=== PATIENT | female | born 2000 | race Caucasian/White ===

== ENCOUNTER 2023-10-11 16:23 | Emergency (ER) | payer MEDICAID, SELFPAY ==
[2023-10-11 16:26] VITALS: BP 145/70; PULSE 64; RESP 15; TEMP 36.9; O2SAT 98; BMI 31.3
--- NOTE | 2023-10-11 16:34 | ED_ITS ---
<Statement entered by Damian Hodge MD - 10/11/23 18:00> I was consulted by the JEFFERSON, and we discussed the complexity of the problems being addressed. I approved the treatment and management plan for this patient's care in the emergency department, thus performing a substantive portion of the medical decision making. Damian Hodge MD Discharge Plan Disposition Patient Disposition: Home, Self-Care Prescriptions Prescriptions: New prednisone 50 mg tablet 50 mg PO DAILY 5 Days Qty: 5 0RF Referrals Follow up/Referrals: Izaiah Green DO [Staff Physician] - See instructions (Left shoulder arthra lgia) Activity Restrictions/Add. Instructions Additional Instructions/Restrictions: I have referred you to orthopedics for further evaluation/treatment. Please c all in the morning to make an appointment. Follow-up with your PCP or return to ER for any worsening signs or symptoms as needed. Clinical Impressions Clinical Impression: Arthralgia of left shoulder region Stand Alone Forms Stand Alone Forms: Work/School Release Instructions Patient Instructions: DI for Arthralgia Discharge ED Provider: Damian Hodge General Adult HPI General Chief complaint: PAIN Stated complaint: Left shoulder,arm pain Time Seen by Provider: 10/11/23 16:27 History of Present Illness HPI narrative: Patient presents for evaluation of left upper extremity pain. Patient presents for left upper extremity pain that began when she awoke this morning. 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 Patient denies any known trauma or injury but awoke this morning with left shoulder pain that seems to radiate both proximally and distally down her arm with range of motion movement of her shoulder joint. She denies numbness tingling loss of muscle strength or muscle flaccidity. Related Data Previous Rx's Medication Instructions Recorded prednisone 50 mg tablet 50 mg PO DAILY 5 days #5 tabs 10/11/23 Allergies Allergy/AdvReac Type Severity Reaction Status Date / Time No Known Allergies Allergy Verified 10/11/23 16:53 [facility] Disclaimer: The information contained in this section may have been updated after the patient was seen, as this information can be updated by other users. Social History Smoking Status: Never smoker alcohol intake: never current occupational status: employed Travel in the last 8 weeks: None ROS Obtained: Yes Systems reviewed as appropriate & no additional complaints except as documented Physical Exam General General appearance: alert and in no apparent distress Respiratory Respiratory exam: Present normal lung sounds bilaterally Cardiovascular Cardiovascular exam: Present regular rate and normal rhythm Neurological Exam Neurological exam: Present alert and oriented X3 Skin Skin exam: Present warm, dry and normal color Other Other exam information: Focused left upper extremity exam shows that patient is tender to palpation underneath the AC joint especially with abduction, and she is tender throughout her entire range of motion testing of her shoulder. Patient has no pain with pronation supination of the forearm and is neurovascular intact distally. I do not feel any joint laxity do not feel tenderness over the biceps groove I do not feel any deformities or joint swelling. Medical Decision Making Medical Records Medical records reviewed: Yes I reviewed the patient's medical records. Alejandro Inquiry Pt receiving controlled substance: No Vital Signs: 10/11/23 16:26 10/11/23 16:37 10/11/23 17:45 Temperature 98.4 F 98.0 F Temperature Source Oral Pulse Rate 74 71 Pulse Rate [Left Radial] 64 Respiratory Rate 15 13 19 Blood Pressure 125/70 132/75 Blood Pressure [Right Arm] 145/70 H Blood Pressure Mean [Right Arm] 95 02 Sat by Pulse Oximetry 98 99 Oxygen Delivery Method Room Air Room Air Lab Data Lab results reviewed: Yes I reviewed the patient's lab results. Orders (Tests/Meds): ED MEDICATIONS Discontinued Medications Generic Name Dose Route Start Last Admin Trade Name Freq PRN Reason Stop Dose Admin Acetaminophen 1,000 mg 10/11/23 16:45 10/11/23 17:03 Acetaminophen 500mg Tab PO 10/11/23 16:46 1,000 mg ONCE ONE Administration Ketorolac Tromethamine 10 mg 10/11/23 16:45 10/11/23 17:03 Ketorolac 10mg Tablet PO 10/16/23 16:44 10 mg Q6H DAVID Administration Prednisone 40 mg 10/11/23 16:46 10/11/23 17:03 Prednisone 20mg Tab PO 10/11/23 16:47 40 mg ONCE ONE Administration ORDERS Category Date Time Status Shoulder XR left minimum 2 views [XR shoulder LT min 2V Exams 10/11/23 16:45 Completed ] Stat Medical Decision Narrative: In summary patient is a-year-old female who presents to the emergency department for evaluation of left shoulder pain. Patient is hemodynamically upon arrival, afebrile. Physical exam is remarkable for tenderness palpation under the AC joint with limited range of motion due to pain. Patient has no neurovascular compromise distally. Differential diagnosis includes impingement syndrome versus bursitis versus joint effusion versus ligamentous injury etc. Initial workup will be conducted with plain film x-rays. Initial interventions include acetaminophen Decadron Toradol. Initial workup reviewed by me my informal review of her plain film x-ray shows no acute processes prior to radiologist read.. Upon repeat evaluation patient has modest improvement. Given this patient will be given a prescription for prednisone and referral to orthopedics for further evaluation and workup is appropriate for discharge home Critical Care Critical Care Time Critical Care Time: No
[2023-10-11 16:37] VITALS: BP 125/70; PULSE 74; RESP 13; O2SAT 99
--- NOTE | 2023-10-11 16:45 | XR_ITS ---
PROCEDURE INFORMATION: Exam: XR Left Shoulder Exam date and time: 10/11/2023 4:51 PM Age: 23 years old Clinical indication: Pain; Shoulder; Left; Additional info: Arthralgia TECHNIQUE: Imaging protocol: Radiologic exam of the left shoulder. Views: 2 or more views. COMPARISON: No relevant prior studies available. FINDINGS: Bones/joints: Normal. No acute fracture identified. Soft tissues: Normal. IMPRESSION: No acute findings.
[2023-10-11] MEDS: ACETAMINOPHEN 500MG TAB 1000 MG PO (17:03)
[2023-10-11] MEDS: predniSONE 20MG TAB 40 MG PO (17:03)
[2023-10-11] MEDS: KETOROLAC 10MG TABLET 10 MG PO (17:03)
[2023-10-11 17:45] VITALS: BP 132/75; PULSE 71; RESP 19; TEMP 36.7
== END 2023-10-11 17:46 | disposition home or self-care (01) ==
PROVIDERS: Emergency Provider Emergency Medicine
DX: M25.512 Pain in left shoulder (principal)
CPT/HCPCS: 73030; 99283

== ENCOUNTER 2024-01-02 13:11 | Emergency (ER) | payer MEDICAID, SELFPAY ==
[2024-01-02 13:55] VITALS: BP 146/77; PULSE 74; RESP 18; TEMP 37.1; O2SAT 98; BMI 32.5
--- NOTE | 2024-01-02 14:09 | EXP.UTC ---
Discharge Plan Disposition Patient Disposition: Home, Self-Care Condition: Good Prescriptions Prescriptions: New azithromycin [Zithromax Z-Aamir] 250 mg tablet See Rx Instructions .ROUTE .COMPLEX 5 Days Qty: 6 0RF Rx Instructions: For 250 mg dose pack: take 500 mg today (day 1), then 250 mg for 4 days (days 2-5) benzonatate 100 mg capsule 100 mg PO TID PRN (Reason: cough) Qty: 30 0RF methylprednisolone [Medrol (Aamir)] 4 mg tablets,dose pack See Rx Instructions .Route .COMPLEX 6 Days Qty: 21 0RF Rx Instructions: taper pack; guaifenesin [Mucinex] 600 mg tablet extended release 12hr 1,200 mg PO BID PRN (Reason: cough) Qty: 20 0RF Referrals Follow up/Referrals: Provider,Referral, MD [Primary Care Provider] - See instructions Activity Restrictions/Add. Instructions Additional Instructions/Restrictions: Start antibiotic today. Be sure to complete entire prescription even if feeling better Monitor temp. Tylenol every 4 hours as needed and / or ibuprofen every 6 hours as needed ( As long as your primary care physician has told you that it ok to take both. For fever/aches/pains ER if no less than 101 despite Tylenol or Motrin Humidifier/vaporizer or hot steamy shower Mucinex for your cough and cough suppressant only at night. Be sure to drink lots of water. *Tessalon Perles will not cause drowsiness but use at bedtime to help stop cough so that you may get some rest. *Start steroid today. Helps with inflammation therefore, cough and wheezing. Follow directions on the package. Reviewed side effects. Patient reports taking them before. Follow up IMMEDIATELY for new or worsening of symptoms OR no noticeable improvement over the next 48-72 hours. 911 immediately for any life threatening symptoms such as chest pain or difficulty breathing Clinical Impressions Clinical Impression: Sinusitis, Bronchitis Stand Alone Forms Stand Alone Forms: Work/School Release Instructions Patient Instructions: Sinusitis, Acute Bronchitis, DI for Sinusitis Print Language Print Language: Cape Verdean Discharge ED Provider: Kenna Garcia [facility] [place] General Stated complaint: chest congestion headache tired Mode of Arrival: Ambulatory Source of Information: Patient Limitations: No Limitations Time Seen by Provider: 01/02/24 14:09 Description of Symptoms (Recalled from Triage Doc. by RN): PATIENT C/O CONGESTION, HEADACHE, COUGH AND WEAKNESS FOR APPROX 2 MONTHS HEENT Symptoms (Recalled from RN notes): Yes Resp Symptoms (Recalled from RN notes): Yes Skin Symptoms (Recalled from RN notes): No MS Symptoms (Recalled from RN notes): No Functional Status (Recalled from RN notes): WNL History of Present Illness Provider Complaint: Patient state that she has been having sinus congestion and pressure, chest congestion and cough States that she has tried several over the counter medications to help but has not helped much so today she came in to get checked Related Data Previous Rx's ?Medication ?Instructions ?Recorded azithromycin 250 mg tablet See Rx Instructions PO .COMPLEX 5 01/02/24 (Zithromax Z-Aamir) days #6 tabs benzonatate 100 mg capsule 100 mg PO TID PRN cough #30 caps 01/02/24 guaifenesin 600 mg tablet, 1,200 mg (2 x 600 mg) PO BID PRN 01/02/24 extended release 12 hr (Mucinex) cough #20 tabs methylprednisolone 4 mg tablets in See Rx Instructions .Route 01/02/24 a dose pack (Medrol (Aamir)) .COMPLEX 6 days #21 tabs Allergies Allergy/AdvReac Type Severity Reaction Status Date / Time No Known Allergies Allergy Verified 10/11/23 16:53 Worker's Comp Is this a Worker's Comp case?: No [facility] Disclaimer: The information contained in this section may have been updated after the patient was seen, as this information can be updated by other users. Medical History (Updated 01/02/24 @ 14:13 by Kenna Garcia APRN) No significant past medical history Soc
[2024-01-02 14:15] VITALS: BP 146/77; PULSE 74; RESP 18; TEMP 37.1; O2SAT 98
== END 2024-01-02 14:18 | disposition home or self-care (01) ==
PROVIDERS: Emergency Provider Nurse Practitioner
DX: J20.9 Acute bronchitis, unspecified (principal); J01.90 Acute sinusitis, unspecified; R51.9 Headache, unspecified; R05.9 Cough, unspecified
CPT/HCPCS: 99204; 99212; G0463

== ENCOUNTER 2024-01-22 12:39 | Emergency (ER) | payer MEDICAID, SELFPAY ==
[2024-01-22 12:50] VITALS: BP 133/67; PULSE 73; RESP 21; TEMP 37.1; O2SAT 98; BMI 33.5
--- NOTE | 2024-01-22 13:37 | ED_ITS ---
Discharge Plan Disposition Patient Disposition: Home, Self-Care Condition: Good Prescriptions Prescriptions: New cyclobenzaprine 10 mg Tablet 10 mg PO BID PRN (Reason: Muscle Spasm) Qty: 20 0RF methylprednisolone 4 mg Tablets,Dose Pack 4 mg PO DIRECTED 6 Days Qty: 21 0RF Rx Instructions: Take 1 pack as directed for 6 days Referrals Follow up/Referrals: Provider,Referral, MD [Primary Care Provider] - See instructions Activity Restrictions/Add. Instructions Additional Instructions/Restrictions: Go home and rest. It would be best if you rested tomorrow too. No heavy lifting. No twisting. Take the oral medications as directed. The muscle relaxer (cyclobenzaprine--Flexeril) will make you drowsy, so don't drive or operate heavy machinery after taking it. Don't start the oral steroids (medrol dose pack) until tomorrow, since you had the shots in here today. Follow up with your regular doctor. GO TO THE ER FOR ANY WORSENING SYMPTOMS OR CONCERN, ESPECIALLY BOWEL OR BLADDER ISSUES, SADDLE AREA NUMBNESS, FEVER, ETC Clinical Impressions Clinical Impression: Low back pain Stand Alone Forms Stand Alone Forms: Work/School Release Instructions Patient Instructions: DI for Low Back Pain, Cyclobenzaprine, Dexamethasone Injection Print Language Print Language: Khmer Discharge ED Provider: Jesus Benoit [facility] General Stated complaint: pain in lower back Mode of Arrival: Ambulatory Source of Information: Patient Limitations: No Limitations Time Seen by Provider: 01/22/24 13:11 Description of Symptoms (Recalled from Triage Doc. by RN): PATIENT C/O PAIN TO MID-LOWER BACK FOR APPROX 1 WEEK BUT IS WORSE TODAY. 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 HEENT Symptoms (Recalled from RN notes): No Resp Symptoms (Recalled from RN notes): No Skin Symptoms (Recalled from RN notes): No MS Symptoms (Recalled from RN notes): Yes Functional Status (Recalled from RN notes): WNL Related Data Previous Rx's ?Medication ?Instructions ?Recorded cyclobenzaprine 10 mg tablet 10 mg PO BID PRN Muscle Spasm #20 01/22/24 tabs methylprednisolone 4 mg tablets in 4 mg PO DIRECTED 6 days #21 tabs 01/22/24 a dose pack Allergies Allergy/AdvReac Type Severity Reaction Status Date / Time No Known Allergies Allergy Verified 10/11/23 16:53 Worker's Comp Is this a Worker's Comp case?: No [facility] Disclaimer: The information contained in this section may have been updated after the patient was seen, as this information can be updated by other users. Medical History (Updated 01/22/24 @ 14:19 by Jesus Benoit APRN) No significant past medical history Social History (Updated 10/11/23 @ 18:00 by ANA Rae) Smoking Status: Never smoker alcohol intake: never current occupational status: employed Travel in the last 8 weeks: None ROS Obtained: Yes All systems reviewed & no additional complaints except as documented Constitutional Constitutional: Denies chills and Denies fever(s) Eyes Eyes: Denies eye discharge ENT Ears, Nose, Mouth, and Throat: Denies dizziness, Denies otalgia and Denies sore throat Cardiovascular Cardiovascular: Denies chest pain Respiratory Respiratory: Denies shortness of breath, Denies chest congestion, Denies cough, Denies stridor and Denies wheezing Gastrointestinal Gastrointestingal: Denies nausea or vomiting Musculoskeletal Musculoskeletal: Reports as per HPI Integumentary/Breasts Skin/Breast: Denies rash Neurologic Neurologic: Denies dizziness, Denies paresthesias and Reports radicular pain Allergic/Immunologic Allergic/Immunologic: Denies wheezing Physical Exam General General appearance: alert and in no apparent distress Head Head exam: atraumatic, normocephalic and normal inspection Eye Eye exam: Present normal appearance, PERRL and EOMI ENT ENT exam: Present normal exam, normal oropharynx, mucous membranes moist, TM's normal bilaterally and normal external ear exam Neck Neck exam: Present normal inspection, full ROM and trachea midline; Absent meningismus or lymphadenopathy Chest Chest inspection: Present normal inspection and symmetric chest wall rise; Absent tenderness Respiratory Respiratory exam: Present normal lung sounds bilaterally; Absent respiratory distress Cardiovascular Cardiovascular exam: Present regular rate and normal rhythm; Absent JVD Abdominal Exam Abdominal exam: Present soft and normal bowel sounds; Absent distention, tenderness or guarding Extremities Exam Extremities exam: Present normal inspection, full ROM and normal capillary refill; Absent calf tenderness Back Exam Back exam: Present normal inspection and full ROM; Absent tenderness, CVA tenderness (R) or CVA tenderness (L) Neurological Exam Neurological exam: Present alert, oriented X3, CN II-XII intact, normal gait and reflexes normal; Absent motor sensory deficit Psychiatric Psychiatric exam: Present normal affect and normal mood Skin Skin exam: Present warm, dry, intact and normal color Lymphatic Lymphatic Findings: no adenopathy Medical Decision Making Medical Records Medical records reviewed: No I reviewed the patient's medical records. Alejandro Inquiry Pt receiving controlled substance: No Vital Signs: 01/22/24 12:50 Temperature 98.8 F Temperature Source Oral Pulse Rate [Left Brachial] 73 Respiratory Rate 21 Blood Pressure [Left Arm] 133/67 Blood Pressure Mean [Left Arm] 89 Blood Pressure Source [Left Arm] Automatic Cuff Blood Pressure Position [Left Arm] Sitting 02 Sat by Pulse Oximetry 98 Oxygen Delivery Method Room Air
[2024-01-22] MEDS: DEXAMETHASONE 4MG/ML 1ML VIAL 8 MG IM (13:57)
[2024-01-22] MEDS: KETOROLAC 60MG/2ML VIAL 60 MG IM (13:57)
[2024-01-22 14:20] VITALS: BP 133/67; PULSE 73; RESP 21; TEMP 37.1; O2SAT 98
== END 2024-01-22 14:23 | disposition home or self-care (01) ==
PROVIDERS: Emergency Provider Nurse Practitioner Family
DX: M54.59 Other low back pain (principal)
CPT/HCPCS: 96372; 99212; 99214; G0463; J1100; J1885

== ENCOUNTER 2024-03-01 15:27 | Emergency (ER) | payer MEDICAID, SELFPAY ==
--- NOTE | 2024-03-01 16:28 | EXP.UTC ---
Discharge Plan Disposition Patient Disposition: Home, Self-Care Condition: Good Prescriptions Prescriptions: New ibuprofen [IBU] 800 mg tablet 800 mg PO Q8HP PRN (Reason: Moderate Pain) Qty: 30 0RF No Action cyclobenzaprine 10 mg Tablet 10 mg PO BID PRN (Reason: Muscle Spasm) Qty: 20 0RF methylprednisolone 4 mg Tablets,Dose Pack 4 mg PO DIRECTED 6 Days Qty: 21 0RF Rx Instructions: Take 1 pack as directed for 6 days Referrals Follow up/Referrals: Provider,Referral, MD [Primary Care Provider] - See instructions Activity Restrictions/Add. Instructions Additional Instructions/Restrictions: Drink plenty of fluids. Take tylenol or ibuprofen for pain. Follow up with your management coordinator. Follow up with your regular doctor. GO TO THE ER FOR ANY WORSENING SYMPTOMS Clinical Impressions Clinical Impression: Dysmenorrhea Stand Alone Forms Stand Alone Forms: Work/School Release Instructions Patient Instructions: Painful Menstrual Periods, DI for Dysmenorrhea Print Language Print Language: Malawian Discharge ED Provider: Jesus Benoit [facility] General Stated complaint: excessive vaginal bleeding with clots Time Seen by Provider: 03/01/24 16:28 History of Present Illness Provider Complaint: She states that for the past 3 days she has had heavy vaginal bleeding with clots. She states that she is having a very heavy period. She states that she has had heavy periods since she got the depo shot 2 months ago. Related Data Previous Rx's ?Medication ?Instructions ?Recorded cyclobenzaprine 10 mg tablet 10 mg PO BID PRN Muscle Spasm #20 01/22/24 tabs methylprednisolone 4 mg tablets in 4 mg PO DIRECTED 6 days #21 tabs 01/22/24 a dose pack ibuprofen 800 mg tablet (IBU) 800 mg PO Q8HP PRN Moderate Pain 03/01/24 #30 tabs Allergies Allergy/AdvReac Type Severity Reaction Status Date / Time No Known Allergies Allergy Verified 10/11/23 16:53 [facility] Disclaimer: The information contained in this section may have been updated after the patient was seen, as this information can be updated by other users. Medical History (Updated 03/01/24 @ 17:34 by Jesus Benoit APRN) No significant past medical history Social History (Updated 10/11/23 @ 18:00 by ANA Rae) Smoking Status: Never smoker alcohol intake: never current occupational status: employed Travel in the last 8 weeks: None ROS Obtained: Yes All systems reviewed & no additional complaints except as documented Constitutional Constitutional: Denies chills and Denies fever(s) Eyes Eyes: Denies eye discharge ENT Ears, Nose, Mouth, and Throat: Denies dizziness, Denies otalgia and Denies sore throat Cardiovascular Cardiovascular: Denies chest pain Respiratory Respiratory: Denies shortness of breath, Denies chest congestion, Denies cough, Denies stridor and Denies wheezing Gastrointestinal Gastrointestingal: Denies nausea or vomiting Musculoskeletal Musculoskeletal: Reports system reviewed and no additional complaints, except as documented and Denies arthralgias Integumentary/Breasts Skin/Breast: Denies rash Neurologic Neurologic: Denies dizziness and Denies paresthesias Allergic/Immunologic Allergic/Immunologic: Denies wheezing Physical Exam General General appearance: alert and in no apparent distress Head Head exam: atraumatic, normocephalic and normal inspection Eye Eye exam: Present normal appearance, PERRL and EOMI ENT ENT exam: Present normal exam, normal oropharynx, mucous membranes moist, TM's normal bilaterally and normal external ear exam Neck Neck exam: Present normal inspection, full ROM and trachea midline; Absent meningismus or lymphadenopathy Chest Chest inspection: Present normal inspection and symmetric chest wall rise; Absent tenderness Respiratory Respiratory exam: Present normal lung sounds bilaterally; Absent respiratory distress Cardiovascular Cardiovascular exam: Present regular rate and normal rhythm; Absent JVD Abdominal Exam Abdominal exam: Present soft and normal bowel sounds; Absent distention, tenderness or guarding Extremities Exam Extremities exam: Present normal inspection, full ROM and normal capillary refill; Absent calf tenderness Back Exam Back exam: Present normal inspection; Absent tenderness Neurological Exam Neurological exam: Present alert and oriented X3 Psychiatric Psychiatric exam: Present normal affect and normal mood Skin Skin exam: Present warm, dry, intact and normal color Lymphatic Lymphatic Findings: no adenopathy Medical Decision Making Medical Records Medical records reviewed: No I reviewed the patient's medical records. Screening: Per USPSTF and CDC recommendations, given the prevalence of disease in our region, it is our hospital?s policy to screen for HIV and viral Hepatitis for all patients aged 18 and over and those with ongoing risk factors. Alejandro Inquiry Pt receiving controlled substance: No Lab Data Lab results reviewed: Yes I reviewed the patient's lab results. 03/01/24 16:52
[2024-03-01 16:31] VITALS: BP 145/83; PULSE 78; RESP 20; TEMP 36.6; O2SAT 98; BMI 32.5
[2024-03-01 16:35] LABS: UTC Pregnancy Test, Urine Negative (Negative)
[2024-03-01 17:41] LABS: Basophils % 0.6 % (0.1-2.0); Eosinophils # 0.1 K/mm3 (0.0-0.4); Eosinophils % 1.7 % (0.1-12.0); Hematocrit 36.5 % (37.0-47.0); Hemoglobin 12.5 g/dL (12.2-16.2); Lymphocytes # 2.2 K/mm3 (0.7-4.5); Lymphocytes % 31.2 % (10-50); Mean Corpuscular HGB Conc 34.3 g/dL (31.8-35.4); Mean Corpuscular Hemoglobin 28.4 pg (27.0-31.2); Mean Corpuscular Volume 82.8 fl (81-99); Mean Platelet Volume 10.6 fl (7.4-10.4); Monocytes # 0.4 K/mm3 (0.1-1.0); Monocytes % 5.6 % (1.7-9.3); Neutrophils # 4.4 K/mm3 (1.8-7.8); Platelet Count 244 K/mm3 (142-424); Red Blood Count 4.41 M/mm3 (4.20-5.40); Red Cell Distribution Width 14.3 % (11.5-17.5); White Blood Count 7.1 K/mm3 (4.8-10.8)
[2024-03-01 17:49] VITALS: BP 145/83; PULSE 78; RESP 18; TEMP 36.6
== END 2024-03-01 17:59 | disposition home or self-care (01) ==
PROVIDERS: Emergency Provider Nurse Practitioner Family
DX: N94.6 Dysmenorrhea, unspecified (principal)
CPT/HCPCS: 81025; 85025; 99213; G0381

== ENCOUNTER 2024-06-11 17:00 | Emergency (ER) | payer MEDICAID, SELFPAY ==
[2024-06-11 17:01] VITALS: BP 152/85; PULSE 87; RESP 17; TEMP 36.7; O2SAT 99; BMI 17.7
--- NOTE | 2024-06-11 17:05 | ED_ITS ---
<Statement entered by Kishan Portillo MD - 06/11/24 22:18> I was consulted by the JEFFERSON, and we discussed the complexity of the problems being addressed. I approved the treatment and management plan for this patient's care in the emergency department, thus performing a substantive portion of the medical decision making. Kishan Portillo MD, ERIC, FACEP Discharge Plan Disposition Patient Disposition: Home, Self-Care Condition: Good Chief Complaint: Headache Prescriptions Prescriptions: No Action cyclobenzaprine 10 mg Tablet 10 mg PO BID PRN (Reason: Muscle Spasm) Qty: 20 0RF methylprednisolone 4 mg Tablets,Dose Pack 4 mg PO DIRECTED 6 Days Qty: 21 0RF Rx Instructions: Take 1 pack as directed for 6 days ibuprofen [IBU] 800 mg tablet 800 mg PO Q8HP PRN (Reason: Moderate Pain) Qty: 30 0RF Referrals Follow up/Referrals: Odalis Solano APRN [Nurse Practitioner] - See instructions Eligio Snell DO [Staff Physician] - See instructions Provider,MD Flavia [Primary Care Provider] - See instructions Christopher Link MD [Staff Physician] - See instructions Activity Restrictions/Add. Instructions Additional Instructions/Restrictions: I have referred you to cardiology PCP and Dr. Snell and Brenda Solano of [facility] for further workup and management as an outpatient. If you have any continued new or worsening signs or symptoms follow-up with your PCP or return to the ER as needed. Clinical Impressions Clinical Impression: Chest pain Print Language Print Language: Burmese Discharge ED Provider: Kishan Portillo General Adult HPI General Chief complaint: Headache Stated complaint: HBP ,[place], LT arm pain Time Seen by Provider: 06/11/24 17:05 History of Present Illness HPI narrative: Patient presents for evaluation of headache and chest pain. Patient reports yesterday that she began having a headache that then progressed into a rapid heart rate and right-sided chest pain. That persisted for a long period of time however resolved on its own. Patient reports that she had elevated blood pressures during her and was concerned because she felt very similarly yesterday as to when she had preeclampsia. She denies fever chills hemoptysis hematochezia melena nausea vomiting diarrhea. Patient states today that she still has a slight headache but her chest pain is gone. Related Data Previous Rx's ?Medication ?Instructions ?Recorded cyclobenzaprine 10 mg tablet 10 mg PO BID PRN Muscle Spasm #20 01/22/24 tabs methylprednisolone 4 mg tablets in 4 mg PO DIRECTED 6 days #21 tabs 01/22/24 a dose pack ibuprofen 800 mg tablet (IBU) 800 mg PO Q8HP PRN Moderate Pain 03/01/24 #30 tabs Allergies Allergy/AdvReac Type Severity Reaction Status Date / Time No Known Allergies Allergy Verified 10/11/23 16:53 [facility] Disclaimer: The information contained in this section may have been updated after the patient was seen, as this information can be updated by other users. Medical History (Updated 06/11/24 @ 19:18 by ANA Rae) No significant past medical history Social History (Updated 10/11/23 @ 18:00 by ANA Rae) Smoking Status: Never smoker alcohol intake: never current occupational status: employed Travel in the last 8 weeks: None Have you lived/traveled outside US in past 30 days?: No Contact w/someone who lives/traveled outside US past 30 days?: No Exposure to someone with infectious disease in past 14 days?: No Do you have a fever (greater than 100.4 F or 38 C)?: No Have you tested positive for COVID-19: No Exposed to someone with COVID-19 in past 14 days?: No Do you have a sore throat?: No Do you have a cough?: No Do you have any weakness?: No Do you have any diarrhea?: No Are you experiencing any unusual bleeding?: No Do you have any muscle aches/pain?: No Do you have any abdominal pain?: No Are you experiencing loss of taste or smell?: No ROS Obtained: Yes Systems reviewed as appropriate & no additional complaints except as documented Physical Exam General General appearance: alert and in no apparent distress Respiratory Respiratory exam: Present normal lung sounds bilaterally Cardiovascular Cardiovascular exam: Present regular rate Neurological Exam Neurological exam: Present alert and oriented X3 Medical Decision Making Medical Records Medical records reviewed: Yes I reviewed the patient's medical records. Screening: Per USPSTF and CDC recommendations, given the prevalence of disease in our region, it is our hospital?s policy to screen for HIV and viral Hepatitis for all patients aged 18 and over and those with ongoing risk factors. Alejandro Inquiry Pt receiving controlled substance: No Vital Signs: 06/11/24 17:01 06/11/24 17:41 06/11/24 18:44 Temperature 98.1 F Temperature Source Oral Pulse Rate 72 76 Pulse Rate [Right] 87 Respiratory Rate 17 14 Blood Pressure 130/80 143/69 H Blood Pressure [Left Arm] 152/85 H Blood Pressure Mean [Left Arm] 107 Blood Pressure Source [Left Arm] Automatic Cuff Blood Pressure Position Sitting 02 Sat by Pulse Oximetry 99 99 99 Oxygen Delivery Method Room Air Room Air Lab Data Lab results reviewed: Yes I reviewed the patient's lab results. Lab Results 06/11/24 17:38: WBC 9.3, RBC 4.54, Hgb 12.0 L, Hct 37.0, MCV 81.5, MCH 26.4 L, MCHC 32.4, RDW 15.1, Plt Count 238, MPV 12.6 H, Neut % (Auto) 71.6, Lymph % (Auto) 19.9, [place] % (Auto) 6.4, Eos % (Auto) 1.5, Baso % (Auto) 0.4, Neut # (Auto) 6.6, Lymph # (Auto) 1.9, [place] # (Auto) 0.6, Eos # (Auto) 0.1, Baso # (Auto) 0.0, Sodium 138, Potassium 4.2, Chloride 108 H, Carbon Dioxide 22, Anion Gap 12.2, BUN 10, Creatinine 0.70, Estimated Creat Clear 105, Estimated GFR 101, Est GFR ( Amer) 122, Glucose 118 H, Calcium 9.3, Total Bilirubin 0.2, AST 42 H, ALT 39, Alkaline Phosphatase 48, Troponin I < 0.01, Total Protein 6.6, Albumin 4.4, Globulin 2.2, Albumin/Globulin Ratio 2.0 H, Lipase 53, Serum HCG, Qual Negative, SARS-CoV-2 (PCR) Not detected, HIV Ag/Ab Combo Qual Negative, Influenza A Untype (PCR) Not detected, Influenza Type B (PCR) Not detected 06/11/24 17:38 06/11/24 17:38 Orders (Tests/Meds): ED MEDICATIONS Discontinued Medications Generic Name Dose Route Start Last Admin Trade Name Freq PRN Reason Stop Dose Admin Acetaminophen 1,000 mg 06/11/24 17:18 06/11/24 17:39 Acetaminophen 500mg Tab PO 06/11/24 17:19 1,000 mg ONCE ONE Administration Ibuprofen 800 mg 06/11/24 17:18 06/11/24 17:39 Ibuprofen 400 Mg Tablet PO 06/11/24 17:19 800 mg ONCE ONE Administration ORDERS Category Date Time Status Chest XR 2 view (NOT portable) [XR chest 2V] Stat Exams 06/11/24 17:18 Taken CBC w/Auto Diff [Complete Blood Count Auto Diff] Stat Lab 06/11/24 17:38 Completed CMP [Comprehensive Metabolic Panel] Stat Lab 06/11/24 17:38 Completed HCG Qualitative, Serum Stat Lab 06/11/24 17:38 Completed HIV Combo Stat Lab 06/11/24 17:38 Completed Hepatitis C Ab Qual. W/ RFX Stat Lab 06/11/24 17:38 Received Lipase Stat Lab 06/11/24 17:38 Completed Rapid PCR Covid and Flu A/B Stat Lab 06/11/24 17:38 Completed Trop I [Troponin I] Stat Lab 06/11/24 17:38 Completed Troponin I Q3H Lab 06/11/24 20:30 Ordered Troponin I Q3H Lab 06/11/24 23:30 Ordered HEART Score History (anamnesis): Slightly suspicious ECG: Non-specific disturbance Age: <45 years Risk factors: 1-2 risk factors Troponin: </= normal limit HEART Score: 2 Medical Decision Narrative: In summary patient is a 24-year-old female who presents to the emergency department for evaluation of headache, chest pain and fast heart rate yesterday.. Patient is initially normotensive with a blood pressure 1 50-85 heart rate 87 with sinus rhythm on the bedside monitor breathing 17 times a minute satting at 99% on room air upon arrival, and afebrile at 98.1. Physical exam is remarkable for no congeal signs no nuchal rigidity pupils equal round reactive to light Boone Coma Score is 15 she is awake alert and oriented to person place and circumstance, breath sounds clear and equal bilaterally to the bases without adventitious sounds. Heart sounds are S1-S2 regular rate and rhythm without murmurs Rubs or thrills. There is no reproducible chest pain on palpation.. Differential diagnosis includes tachyarrhythmia versus ACS versus viral infection versus pneumonia versus anxiety etc. Initial workup will be conducted with hematologic labs twelve-lead EKG plain film chest x-ray respiratory swab. Initial interventions include Tylenol and ibuprofen. Initial workup reviewed by me and her hematologic labs are nonactionable her troponin is undetectable her twelve-lead EKG is normal and my informal interpretation of her plain film chest x-ray shows no acute processes.. Upon repeat evaluation patient reports feeling no change and remains asymptomatic. Given this patient is appropriate for discharge with referral to cardiology for further outpatient testing and also referral for a PCP and for behavioral health for anxiety management. Critical Care Critical Care Time Critical Care Time: No
--- NOTE | 2024-06-11 17:18 | XR_ITS ---
PROCEDURE INFORMATION: Exam: XR Chest Exam date and time: 06/11/2024 6:50 PM Age: 24 years old Clinical indication: Pain; Chest pressure; Additional info: Right-sided chest pain TECHNIQUE: Imaging protocol: Radiologic exam of the chest. Views: 2 views. COMPARISON: CR XR SHOULDER LT MIN 2V 10/11/2023 4:51 PM FINDINGS: Lungs: Normal pulmonary expansion. Pulmonary vasculature grossly normal. No gross pulmonary infiltrates or edema pattern. Pleural spaces: No pleural effusion. No pneumothorax. Heart/Mediastinum: Heart size normal. No tracheal/mediastinal shift. Bones/joints: No acute osseous abnormalities are identified. IMPRESSION: No acute thoracic process.
--- NOTE | 2024-06-11 17:36 | PC.NURSE ---
I rounded on the pt and straight stuck her for lab work. no new complaints. no needs voiced. call keys in reach.
[2024-06-11] MEDS: ACETAMINOPHEN 500MG TAB 1000 MG PO (17:39)
[2024-06-11] MEDS: IBUPROFEN 400 MG TABLET 800 MG PO (17:39)
[2024-06-11 17:41] VITALS: BP 130/80; PULSE 72; RESP 14; O2SAT 99
[2024-06-11 17:44] LABS: Coronavirus 19, PCR Not Detected (NotDetected); Influenza A, PCR Not Detected (NotDetected); Influenza B, PCR Not Detected (NotDetected)
[2024-06-11 17:50] LABS: Basophils % 0.4 % (0.1-2.0); Eosinophils # 0.1 K/mm3 (0.0-0.4); Eosinophils % 1.5 % (0.1-12.0); Lymphocytes # 1.9 K/mm3 (0.7-4.5); Lymphocytes % 19.9 % (10-50); Mean Corpuscular HGB Conc 32.4 g/dL (31.8-35.4); Mean Corpuscular Hemoglobin 26.4 pg (27.0-31.2); Mean Corpuscular Volume 81.5 fl (81-99); Mean Platelet Volume 12.6 fl (7.4-10.4); Monocytes # 0.6 K/mm3 (0.1-1.0); Monocytes % 6.4 % (1.7-9.3); Neutrophils # 6.6 K/mm3 (1.8-7.8); Neutrophils % 71.6 % (37.0-80.0); Platelet Count 238 K/mm3 (142-424); Red Blood Count 4.54 M/mm3 (4.20-5.40); Red Cell Distribution Width 15.1 % (11.5-17.5); White Blood Count 9.3 K/mm3 (4.8-10.8)
[2024-06-11 18:23] LABS: Alanine Aminotransferase 39 U/L (12-78); Albumin Level 4.4 g/dl (3.5-5.0); Alkaline Phosphatase 48 U/L (38-126); Anion Gap 12.2 mEq/L (5-15); Aspartate Amino Transferase 42 U/L (14-36); Bilirubin,Total 0.2 mg/dl (0.2-1.3); Blood Urea Nitrogen 10 mg/dl (7-17); Calcium 9.3 mg/dl (8.4-10.2); Carbon Dioxide 22 mmol/L (22.0-30.0); Chloride 108 mmol/L (98-107); Creatinine Clearance Estimated 105 mL/min (50-200); Estimated Glomerular Filt Rate 101 ml/min (>60); GFR (African American) 122 ML/MIN (>60); Globulin 2.2 g/dL (1.3-3.2); Glucose 118 mg/dl (74-100); Lipase 53 U/L (23-300); Potassium 4.2 mmoL/L (3.5-5.1); Sodium 138 mmol/L (136-145); Total Protein,Serum 6.6 g/dl (6.3-8.2)
--- NOTE | 2024-06-11 18:24 | PC.NURSE ---
ROUNDED ON THE PT. THE PT VOICES THAT SHE DOES NOT NEED ANYTHING AT THIS TIME. CALL LIGHT IS WITHIN REACH OF THE PT.
[2024-06-11 18:43] LABS: HCG Qualitative, Serum Negative (Negative)
[2024-06-11 18:44] VITALS: BP 143/69; PULSE 76; O2SAT 99
[2024-06-11 18:52] LABS: Troponin I < 0.01 ng/ml (0.00-0.034)
[2024-06-11 19:05] LABS: HIV Combo NEGATIVE (Negative)
[2024-06-11 19:26] VITALS: BP 134/78; PULSE 65; RESP 16; TEMP 36.6; O2SAT 98
[2024-06-11 19:43] LABS: Hepatitis C Ab Qual. W/ RFX NEGATIVE (Negative)
== END 2024-06-11 19:28 | disposition home or self-care (01) ==
PROVIDERS: Physician Assistant; Emergency Provider Student in an Organized Health Care Education/Training Program
DX: R07.9 Chest pain, unspecified (principal); R51.9 Headache, unspecified; R00.0 Tachycardia, unspecified; R03.0 Elevated blood-pressure reading, without diagnosis of hypertension
CPT/HCPCS: 71046; 80053; 83690; 84484; 84703; 85025; 86803; 87389; 87636; 99283

== ENCOUNTER 2024-07-08 12:25 | Emergency (ER) | payer MEDICAID, SELFPAY ==
[2024-07-08 12:39] VITALS: BP 151/81; PULSE 122; RESP 18; TEMP 36.8; O2SAT 97; BMI 32.8
[2024-07-08 12:55] LABS: Coronavirus 19, PCR Not Detected (NotDetected); Influenza B, PCR Not Detected (NotDetected)
[2024-07-08 13:41] LABS: Influenza A, PCR Detected (NotDetected)
--- NOTE | 2024-07-08 13:52 | ED_ITS ---
Discharge Plan Disposition Patient Disposition: Home, Self-Care Prescriptions Prescriptions: New hemtnksadcyfvww-xbymhxbvv-XL [Bromfed DM] 2-30-10 mg/5 mL syrup 5 ml PO Q6H PRN (Reason: cold symptoms) Qty: 118 0RF Referrals Follow up/Referrals: Provider,Referral, MD [Primary Care Provider] - See instructions Activity Restrictions/Add. Instructions Additional Instructions/Restrictions: At this time it was felt you are safe to be discharged home. If new or worsening symptoms please do not hesitate to return the emergency department. Please take hot showers often, use Vicks vapor rub, take your medication as prescribed, take Tylenol and ibuprofen as needed for aches and pains. Is important that you drink as much water as possible. Clinical Impressions Clinical Impression: Influenza A Instructions Patient Instructions: Influenza, DI for Influenza -- Adult Print Language Print Language: Thai Discharge ED Provider: Damian Hodge General Adult HPI General Chief complaint: Upper Respiratory Infection Stated complaint: Flu exposure fever cough congestion Time Seen by Provider: 07/08/24 13:25 Mode of Arrival: Ambulatory Source of Information: Patient Description of Symptoms (Recalled from ER Triage Doc. by RN): Complaint of cough, congestion and headache for 2 days. History of Present Illness HPI narrative: Patient is 24-year-old female with no pertinent past medical history presents emergency department for evaluation of flu. Patient with multiple sick contacts with flu with similar symptoms she has cough, generally feeling unwell, associated congestion. Adequate p.o. intake and urine output. No other acute complaints at this time. Please note that above description of symptoms, in this electronic medical record under categorization of recalled from ER triage doctor by RN are reflective of an initial nursing assessment, however, is not reflective of my full history and physical exam that was personally taken and clarified. Consequentially, this preceding description of symptoms, which may include the patient's categorized chief complaint in the EMR, do not reflect my personal clinical impression, and the ultimate description of history of present illness and patient stated complaints should be deferred to this section of the note. Unless stated otherwise or congruent with this section of the note, additional signs, symptoms, or incongruence should be interpreted as inaccurate with my clinical impression. Related Data Previous Rx's ?Medication ?Instructions ?Recorded hbreklyofwpabvk-cdtjaofdhvyiahw-KO 5 ml PO Q6H PRN cold symptoms #118 07/08/24 2 mg-30 mg-10 mg/5 mL oral syrup mL (Bromfed DM) Allergies Allergy/AdvReac Type Severity Reaction Status Date / Time No Known Allergies Allergy Verified 10/11/23 16:53 [facility] Disclaimer: The information contained in this section may have been updated after the pat ient was seen, as this information can be updated by other users. Medical History (Updated 07/08/24 @ 13:51 by Damian Hodge MD) No significant past medical history Social History (Updated 10/11/23 @ 18:00 by ANA Rae) Smoking Status: Never smoker alcohol intake: never current occupational status: employed Travel in the last 8 weeks: None Have you lived/traveled outside [place] in past 30 days?: No Contact w/someone who lives/traveled outside US past 30 days?: No Exposure to someone with infectious disease in past 14 days?: Yes Do you have a fever (greater than 100.4 F or 38 C)?: Yes Have you tested positive for COVID-19: No Exposed to someone with COVID-19 in past 14 days?: No Do you have a sore throat?: No Do you have a cough?: Yes Do you have any weakness?: No Do you have any diarrhea?: No Are you experiencing any unusual bleeding?: No Do you have any muscle aches/pain?: No Do you have any abdominal pain?: No Are you experiencing loss of taste or smell?: No ROS Obtained: Yes Systems reviewed as appropriate & no additional complaints except as documented Physical Exam General General appearance: alert and in no apparent distress Head Head exam: atraumatic and normocephalic Eye Eye exam: Present PERRL ENT ENT exam: Present mucous membranes moist; Absent normal oropharynx (Mildly erythematous posterior pharynx no enlarged tonsils no exudate) Neck Neck exam: Present normal inspection Chest Chest inspection: Present normal inspection and symmetric chest wall rise Respiratory Respiratory exam: Present normal lung sounds bilaterally; Absent respiratory distress, wheezes, stridor or accessory muscle use Cardiovascular Cardiovascular exam: Present normal rhythm and tachycardia Extremities Exam Extremities exam: Present normal inspection Neurological Exam Neurological exam: Present alert Psychiatric Psychiatric exam: Present normal affect Skin Skin exam: Present warm and dry Medical Decision Making Medical Records Screening: Per USPSTF and CDC recommendations, given the prevalence of disease in our region, it is our hospital?s policy to screen for HIV and viral Hepatitis for all patients aged 18 and over and those with ongoing risk factors. Alejandro Inquiry Pt receiving controlled substance: No Vital Signs: 07/08/24 12:39 Temperature 98.3 F Temperature Source Oral Pulse Rate [Radial] 122 H Respiratory Rate 18 Blood Pressure [Right Arm] 151/81 H Blood Pressure Mean [Right Arm] 104 Blood Pressure Source [Right Arm] Automatic Cuff Blood Pressure Position [Right Arm] Sitting 02 Sat by Pulse Oximetry 97 Oxygen Delivery Method Room Air Lab Data Lab Results 07/08/24 12:40: SARS-CoV-2 (PCR) Not detected, Influenza A Untype (PCR) Detected A, Influenza Type B (PCR) Not detected Orders (Tests/Meds): ORDERS Category Date Time Status Rapid PCR Covid and Flu A/B Stat Lab 07/08/24 12:40 Completed Medical Decision Narrative: In summary patient is a 24-year-old female past medical history described above presents to the emergency department for evaluation of flulike symptoms. Patient is hemodynamically stable nontoxic-appearing upon arrival, afebrile, tachycardic and well-perfused. Patient is clear to auscultation all lung nunes. Multiple sick contacts with flu Limited workup will be conducted with flu swab as this is highly likely. No concern for pneumonia based on auscultation of the chest therefore workup with chest x-ray was considered but we deferred. I suspect that tachycardia secondary to viremia. Flu swab positive for influenza A. Given this patient is appropriate for discharge at this time and return precautions will be discharged with course of Bromfed. Critical Care Critical Care Time Critical Care Time: No
[2024-07-08 14:08] VITALS: BP 126/70; PULSE 78; RESP 16; TEMP 36.7; O2SAT 99
== END 2024-07-08 14:09 | disposition home or self-care (01) ==
PROVIDERS: Student in an Organized Health Care Education/Training Program; Emergency Provider Emergency Medicine
DX: J10.1 Influenza due to other identified influenza virus with other respiratory manifestations (principal); R05.9 Cough, unspecified; R09.81 Nasal congestion; R51.9 Headache, unspecified; Z20.828 Contact with and (suspected) exposure to other viral communicable diseases
CPT/HCPCS: 87636; 99283

== ENCOUNTER 2025-01-16 15:09 | Emergency (ER) | payer MEDICAID, SELFPAY ==
[2025-01-16 15:34] VITALS: BP 165/82; PULSE 73; RESP 17; TEMP 36.8; O2SAT 100; BMI 32.8
[2025-01-16 15:42] LABS: Microscopic, Urine URINE MICROSCOPIC (MICROSCOPIC)
[2025-01-16 15:45] LABS: Bilirubin,Urine Negative (Negative); Color,Urine YELLOW (Yellow); Glucose,Urine (UA) Negative (Negative); Ketones,Urine Negative (Negative); Leukocyte Esterase,Urine Negative (Negative); PH,Urine 5.5 (5.0-8.5); Protein,Urine Negative (Negative); Specific Gravity, Urine <= 1.005 (1.005-1.030); Urobilinogen,Urine 0.2 EU/dl (0.2)
[2025-01-16 15:50] LABS: Urine Pregnancy, HCG Qual. Negative (Negative)
--- NOTE | 2025-01-16 16:15 | ED_ITS ---
<Statement entered by Sachin Acuña DO - 01/17/25 00:01> I was consulted by the JEFFERSON, and we discussed the complexity of problems being addressed. I approved the treatment and management plan for this patient's care in the emergency department, thus performing a substantive portion of the medical decision making. Sachin Acuña DO Discharge Plan Disposition Patient Disposition: Home, Self-Care Prescriptions Prescriptions: New ondansetron 4 mg tablet,disintegrating 4 mg PO Q8H 3 Days Qty: 9 0RF No Action [id number]-[id number]-JD [Bromfed DM] 2-30-10 mg/5 mL syrup 5 ml PO Q6H PRN (Reason: cold symptoms) Qty: 118 0RF Referrals Follow up/Referrals: Provider,Referral, MD [Primary Care Provider, Medical] - See instructions Activity Restrictions/Add. Instructions Additional Instructions/Restrictions: Thank you for allowing us to care for you today. Fortunately the urine studies look normal. The urine test is also negative. Your pain may be caused by menstrual cramping. If any of your symptoms are worsening, or if you develop constant pain, you should return to the emergency department. You may take Zofran every 8 hours for nausea or vomiting. Clinical Impressions Clinical Impression: Nausea, Urinary frequency Stand Alone Forms Stand Alone Forms: Work/School Release Instructions Patient Instructions: DI for Urinary Tract Infection (UTI), DI for Urinary Tract Infection in Children Print Language Print Language: Yi Discharge ED Provider: Sachin Acuña General Adult HPI General Chief complaint: Urogenital-Female Stated complaint: frequency,nausea,blood in urine Time Seen by Provider: 01/16/25 15:14 Mode of Arrival: Ambulatory Source of Information: Patient Description of Symptoms (Recalled from ER Triage Doc. by RN): Patient complaining of increased frequency of urinating, lower abdominal cramping, blood in urine that started a few days ago History of Present Illness HPI narrative: This is a 24-year-old female with no significant past medical history who presents to the emergency department today for evaluation of urinary frequency and intermittent suprapubic cramping. Patient reports symptoms that just began today. When she went to the restroom earlier today she wiped and saw light pink blood on the toilet paper. She is uncertain if this came from urine or was vaginal but is certain it was not rectal. There was no blood in the toilet bowl. Patient has urinated multiple times since that episode and has not had additional bleeding. She has had some intermittent nausea throughout the day today. No back or flank pain. Patient is on oral contraceptive pills and has not missed any recent doses. Patient's last menstrual period was 12-24-2024 and was normal. Related Data Previous Rx's ?Medication ?Instructions ?Recorded kgnmyydkbecrvfd-oxhjvswulaycgpq-QI 5 ml PO Q6H PRN col d symptoms #118 07/08/24 2 mg-30 mg-10 mg/5 mL oral syrup mL (Bromfed DM) ondansetron 4 mg disintegrating 4 mg PO Q8H 3 days #9 tabs 01/16/25 tablet Allergies Allergy/AdvReac Type Severity Reaction Status Date / Time No Known Allergies Allergy Verified 01/16/25 15:38 [facility] Disclaimer: The information contained in this section may have been updated after the patient was seen, as this information can be updated by other users. Medical History (Updated 01/16/25 @ 17:25 by ANA Cardona) No significant past medical history Social History (Updated 10/11/23 @ 18:00 by ANA Rae) Smoking Status: Never smoker alcohol intake: never current occupational status: employed Travel in the last 8 weeks?: None Have you lived/traveled outside [place] in past 30 days?: No Contact w/someone who lives/traveled outside [place] past 30 days?: No Exposure to someone with infectious disease in past 14 days?: No Do you have a fever (greater than 100.4 F or 38 C)?: No Have you tested positive for COVID-19?: No Exposed to someone with COVID-19 in past 14 days?: No Do you have a sore throat?: No Do you have a cough?: No Do you have any weakness?: No Do you have any diarrhea?: No Are you experiencing any unusual bleeding?: No Do you have any muscle aches/pain?: No Do you have any abdominal pain?: No Are you experiencing loss of taste or smell?: No ROS Obtained: Yes Systems reviewed as appropriate & no additional complaints except as documented Physical Exam General General appearance: alert and in no apparent distress Head Head exam: atraumatic and normocephalic Neck Neck exam: Present full ROM Respiratory Respiratory exam: Present normal lung sounds bilaterally; Absent respiratory distress Cardiovascular Cardiovascular exam: Present regular rate and normal rhythm Abdominal Exam Abdominal exam: Present soft and normal bowel sounds; Absent distention, tenderness, guarding or diminished bowel sounds Neurological Exam Neurological exam: Present alert and oriented X3 Medical Decision Making Medical Records Medical records reviewed: Yes I reviewed the patient's medical records. Screening: Per USPSTF and CDC recommendations, given the prevalence of disease in our region, it is our hospital?s policy to screen for HIV and viral Hepatitis for all patients aged 18 and over and those with ongoing risk factors. Alejandro Inquiry Pt receiving controlled substance: No Vital Signs: 01/16/25 15:34 01/16/25 16:30 Temperature 98.3 F Temperature Source Oral Pulse Rate 65 Pulse Rate [Right Brachial] 73 Respiratory Rate 17 Blood Pressure 130/90 Blood Pressure [Right Arm] 165/82 H Blood Pressure Mean [Right Arm] 109 Blood Pressure Source [Right Arm] Automatic Cuff Blood Pressure Position [Right Arm] Sitting 02 Sat by Pulse Oximetry 100 96 Oxygen Delivery Method Room Air Lab Data Lab Results 01/16/25 15:30: Urine Color Yellow, Urine Appearance Clear, Urine pH 5.5, Ur Specific [place] <= 1.005, Urine Protein Negative, Urine Glucose (UA) Negative, Urine Ketones Negative, Urine Blood Negative, Urine Nitrate Negative, Urine Bilirubin Negative, Urine Urobilinogen 0.2, Ur Leukocyte Esterase Negative, Urine RBC Occasional, Urine WBC Occasional, Ur Squamous Epith Cells 3-5, Urine Bacteria 1+, Urine HCG, Qual Negative Orders (Tests/Meds): ORDERS Category Date Time Status Urinalysis and Microscopic Stat Lab 01/16/25 15:30 Completed Urine , HCG Qual. Stat Lab 01/16/25 15:30 Completed Medical Decision Narrative: In summary, this is a 24-year-old female presenting to the emergency department today for evaluation of urinary frequency and nausea that has been intermittent throughout the day today. Patient is on oral contraceptive pills and has not had any delayed or missed doses. On exam patient is well-appearing and in no acute distress. She is sitting comfortably on hospital stretcher. Respiratory rate and effort are normal and nonlabored. The abdomen is soft, nondistended, nontender to palpation. There is no CVA tenderness. Differential diagnoses include but are not limited to urinary tract infection, menstrual bleeding, , gastroenteritis, nephrolithiasis, among others. Urinalysis is normal without blood or evidence of infection. Urine micro negative. On repeat abdominal exam, patient remains nontender to palpation. There is low suspicion for intra-abdominal process at this time. Patient may be having menstrual cramps given she is having light vaginal bleeding. Patient's test is negative and she has not had any missed OCP doses. Because of this, low suspicion for ovarian etiology at this time, especially given patient is nontender to palpation. We discussed treatment options and additional workup with the patient. Shared decision making was used and we will hold off on obtaining ultrasound at this time given she is not tender. We will prescribe Zofran to the patient's pharmacy for management of nausea. She will return to the emergency department if she develops fever, worsening bleeding, or any other concerning symptoms. Patient feels comfortable with this treatment and discharge plan. Return precautions were discussed and understood and all questions have been answered. She is appropriate for safe discharge home at this time. Critical Care Critical Care Time Critical Care Time: No
[2025-01-16 16:17] LABS: Bacteria,Urine 1+ /lpf; RBC,Urine Occasional #/hpf (0-3); WBC,Urine Occasional #/hpf (0-3)
[2025-01-16 16:30] VITALS: BP 130/90; PULSE 65; O2SAT 96
[2025-01-16 17:31] VITALS: BP 134/82; PULSE 60; RESP 16; TEMP 36.6; O2SAT 99
== END 2025-01-16 17:32 | disposition home or self-care (01) ==
PROVIDERS: Emergency Provider Student in an Organized Health Care Education/Training Program
DX: R10.30 Lower abdominal pain, unspecified (principal); R35.0 Frequency of micturition; R11.0 Nausea
CPT/HCPCS: 81001; 81025; 99284